=== PATIENT | female | born 1990 | race Caucasian/White ===

== ENCOUNTER 2016-07-21 22:35 | Emergency (ER) | payer BC, OTHER ==
[~2016-07-21] VITALS: Ht 157.5 cm; Wt 59.0 kg
[~2016-07-21 22:35] MED LIST: ABILIFY10 MG ORAL; ALPRAZOLAM0.25 MG ORAL; AMOXICILLIN500 MG ORAL; DEPAKOTE250 MG PO; IBUPROFEN200 M2 ORAL; IBUPROFEN600 MG ORAL; LITHIUM CARBON450 MG PO; MAALOX ADVANCE770 ML PO; MINIPRESS1 MG PO; ONDANSETRON ODT4 MG ORAL; ROBAXIN-750750 MG PO
[2016-07-21 22:42] VITALS: BP 121/76
[2016-07-21] MEDS ORDERED: Norco 5mg/325mg tab ORAL ONE (23:00)
--- NOTE | 2016-07-21 23:00 | Emergency Room Report ---
History of Present Illness General Chief Complaint: Earache Source: Patient Present Illness HPI This is a 25-year-old female with no significant past medical history. She presents with chief complaint of ear pain mostly on the right eye. She was seen here about 3 weeks ago and diagnosed with otitis media. First prescribe amoxicillin. She didn't get any better with it. She went to urgent care on Tuesday and prescribe Augmentin. She is senior living through but now still having pain. Having some jaw pain and neck pain with it also. Denies any fever chills denies any abdominal pain. Denies any swelling. Allergies: Coded Allergies: No Known Allergies (Unverified , 02/28/16) Patient History Past Medical History: see triage record, old chart reviewed Past Surgical History: none Pertinent Family History: none Social History: Denies: smoking Last Menstrual Period: 07/09/16 Now: No Immunizations: other Reviewed Nursing Documentation: PMH: Agreed, PSxH: Agreed Nursing Documentation-PMH Past Medical History: No Stated History Review of Systems Eye: Denies: blurred vision, eye pain ENT: Reports: ear pain, Denies: nose congestion, throat swelling Respiratory: Denies: cough, shortness of breath Cardiovascular: Denies: chest pain, palpitations Gastrointestinal: Denies: abdominal pain, diarrhea, nausea, vomiting Musculoskeletal: Denies: back pain, joint pain Skin: Denies: rash Neurological: Denies: headache, numbness Endocrine: Denies: increased thirst, increased urine Hematologic/Lymphatic: Denies: easy bruising All Other Systems: negative except mentioned in HPI Physical Exam Vital Signs Date Time Temp Pulse Resp B/P Pulse Ox O2 Delivery O2 Flow Rate FiO2 07/21/16 22:38 98.8 84 16 121/76 99 Room Air vitals normal Sp02 EP Interpretation: reviewed, normal General Appearance: well appearing, no apparent distress, alert Head: normocephalic, atraumatic Eyes: bilateral eye EOMI, bilateral eye PERRL ENT: hearing grossly normal, normal pharynx, other - Bilateral TMs showed effusion. There is some bulging of the TM mostly on the right. No erythema. No perforation. Neck: full range of motion, supple, no meningismus Respiratory: chest non-tender, lungs clear, normal breath sounds Cardiovascular #1: regular rate, rhythm, no murmur Gastrointestinal: normal bowel sounds, non tender, no mass, no organomegaly, no bruit, non-distended Musculoskeletal: back normal, gait/station normal, normal range of motion Psychiatric: mood/affect normal Skin: warm/dry Medical Decision Making Diagnostic Impression: Primary Impression: Otitis media of both ears Qualified Codes: H65.23 - Chronic serous otitis media, bilateral ER Course Patient presents with bilateral ear pain. She does have significant effusion. She also has a dry cough. This is most likely postnasal drip. We'll write for decongestant. We'll have her finish up the Augmentin. I will refer her to ENT. No evidence of perforation. No evidence of meningitis. No evidence of abscess. Last Vital Signs Date Time Temp Pulse Resp B/P Pulse Ox O2 Delivery O2 Flow Rate FiO2 07/21/16 22:38 98.8 84 16 121/76 99 Room Air Status: improved Disposition: HOME, SELF-CARE Condition: Stable Patient Instructions: Otitis Media, Adult, [id number] Additional Instructions: Followup with your nose and throat Dr. within one to 2 weeks. Return for increasing pain, fever, chills, or any concern. Finished up with the Augmentin prescription. JOSE MARTIN SERVIN M.D. Jul 21, 2016 23:00
[2016-07-21 23:13] VITALS: BP 121/76
== END 2016-07-21 23:13 | disposition home or self-care (01) ==
LOC: EMR 22:54
DX: H65.23 Chronic serous otitis media, bilateral (principal)
CPT/HCPCS: 99283

== ENCOUNTER 2016-10-29 01:55 | Emergency (ER) | payer SELFPAY ==
[~2016-10-29] VITALS: Ht 157.5 cm; Wt 59.0 kg
--- NOTE | 2016-10-29 02:26 | Emergency Room Report ---
History of Present Illness General Chief Complaint: Female Urogenital Problems Source: Patient Present Illness HPI Is a 26-year-old female who is right-hand dominant. She presents with 2 issues. Her first complaint is mild hematuria. No dysuria frequency. This is a slight amount of spotting. Denies any nausea vomiting denies any back pain. Her second complaint is that she has tenderness in swelling to the left arm by the elbow area. She does work out regularly but no heavy lifting. Denies any fever or chills. Notice it 3 hours ago. Worse with movement. Allergies: Coded Allergies: No Known Allergies (Unverified , 02/28/16) Patient History Past Medical History: see triage record, old chart reviewed Past Surgical History: none Pertinent Family History: none Social History: Denies: smoking Last Menstrual Period: 10/15/16 Now: No : 0 Para: 0 Immunizations: other Reviewed Nursing Documentation: PMH: Agreed, PSxH: Agreed Nursing Documentation-PMH Past Medical History: No Stated History Review of Systems Eye: Denies: blurred vision, eye pain ENT: Denies: ear pain, nose congestion, throat swelling Respiratory: Denies: cough, shortness of breath Cardiovascular: Denies: chest pain, palpitations Gastrointestinal: Denies: abdominal pain, diarrhea, nausea, vomiting Musculoskeletal: Denies: back pain, joint pain Skin: Denies: rash Neurological: Denies: headache, numbness Endocrine: Denies: increased thirst, increased urine Hematologic/Lymphatic: Denies: easy bruising All Other Systems: negative except mentioned in HPI Physical Exam Vital Signs Date Time Temp Pulse Resp B/P Pulse Ox O2 Delivery O2 Flow Rate FiO2 10/29/16 01:59 97.9 78 14 117/61 97 Room Air vitals normal Sp02 EP Interpretation: reviewed, normal General Appearance: well appearing, no apparent distress, alert Head: normocephalic, atraumatic Eyes: bilateral eye EOMI, bilateral eye PERRL ENT: hearing grossly normal, normal pharynx Neck: full range of motion, supple, no meningismus Respiratory: chest non-tender, lungs clear, normal breath sounds Cardiovascular #1: regular rate, rhythm, no murmur Gastrointestinal: normal bowel sounds, non tender, no mass, no organomegaly, no bruit, non-distended Musculoskeletal: back normal, gait/station normal, normal range of motion, other - Left elbow: Mild tenderness along the brachial radialis. Full range of motion. Sensation normal. Radial pulse 2+. Neurologic: alert, oriented x3 Psychiatric: mood/affect normal Skin: warm/dry Medical Decision Making Diagnostic Impression: Primary Impression: Spotting between menses Additional Impression: Muscle strain of left forearm Qualified Codes: S56.912A - Strain of unspecified muscles, fascia and tendons at forearm level, left arm, initial encounter ER Course Patient presents with spotting. No evidence of . No evidence of UTI. No bleeding now. I did a bedside ultrasound in her and it showed no evidence of DVT to Last Vital Signs Date Time Temp Pulse Resp B/P Pulse Ox O2 Delivery O2 Flow Rate FiO2 10/29/16 01:59 97.9 78 14 117/61 97 Room Air Status: improved Disposition: HOME, SELF-CARE Condition: Stable Scripts Ibuprofen* (MOTRIN*) 600 Mg Tablet 600 MG ORAL THREE TIMES A DAY, #30 TAB 0 Refills Prov: JOSE MARTIN SERVIN M.D. 10/29/16 Additional Instructions: Followup with your DrShantel in 7 days as needed. Return if worse. JOSE MARTIN SERVIN M.D. Oct 29, 2016 02:26
[2016-10-29 03:04] LABS: APPEARANCE,URINE CLEAR; KETONES,URINE 1+ (NEGATIVE); LEUKOCYTE ESTERASE ,URINE NEGATIVE (NEGATIVE); NITRITE,URINE NEGATIVE (NEGATIVE); PH,URINE 6.5 (4.5-8.0); PROTEIN,URINE NEGATIVE (NEGATIVE); UROBILINOGEN,URINE NORMAL MG/DL (0.0-1.0)
[2016-10-29] MEDS ORDERED: IBUPROFEN600 MG ORAL (03:37)
[2016-10-29 03:45] VITALS: BP 121/70
[2016-10-29 04:55] VITALS: BP 121/70
== END 2016-10-29 03:45 | disposition home or self-care (01) ==
LOC: EMR 02:18
DX: N92.5 Other specified irregular menstruation (principal); S56.812A Strain of other muscles, fascia and tendons at forearm level, left arm, initial encounter; Y93.B9 Activity, other involving muscle strengthening exercises; R31.9 Hematuria, unspecified; Y92.89 Other specified places as the place of occurrence of the external cause
CPT/HCPCS: 81003; 81025; 99283